=== PATIENT | female | born 1940 ===

== ENCOUNTER 2017-01-06 08:44 | Day surgery (SDC) | payer MEDICARE, OTHER, MEDICAID ==
[2017-01-03 10:32] VITALS: BMI 29.0
[2017-01-06] MEDS ORDERED: Bacitracin 500 Units/gm Oint Foilpak UD ONE ×2 (09:45→10:31)
[2017-01-06] MEDS ORDERED: Triamcinolone Acetonide 40 mg/mL Inj ONE (09:45)
[2017-01-06] MEDS ORDERED: Sodium Bicarbonate (8.4%) 50 Meq Syringe ONE (09:46)
[2017-01-06] MEDS ORDERED: Sodium Chloride 0.9% 10 ML IV ONE (09:46)
[2017-01-06] MEDS ORDERED: Iohexol 240 (50 ml) ONE (09:46)
[2017-01-06] MEDS ORDERED: Lidocaine 1% Inj (20ml) ONE (09:46)
[2017-01-06] MEDS ORDERED: Propofol 10 mg/ml Inj (20 ML) ONE (10:04)
[2017-01-06] MEDS ORDERED: Midazolam 2 MG/2 ML VIAL ONE (10:04)
[2017-01-06] MEDS ORDERED: Lactated Ringer's 1,000 ML IV SCH (10:15)
[2017-01-06] MEDS ORDERED: Dexamethasone 4 mg/1 ml ONE (10:23)
[2017-01-06 10:52] VITALS: TEMP 97.8
[2017-01-06 11:26] VITALS: O2SAT 99
--- NOTE | 2017-01-06 11:28 | RAD ---
PROCEDURE: Fluoro epidural spine injection HISTORY: LESI COMPARISON: TECHNIQUE: Fluoroscopy was provided in the operating room. 16.3 seconds of fluoro time were used. Two images were submitted FINDINGS: The study shows needle placement at the L3 level with contrast in the epidural space IMPRESSION: As above
[2017-01-06 12:06] VITALS: RESP 18
[2017-01-06 12:07] VITALS: BP 127/52; PULSE 60
--- NOTE | 2017-01-06 13:50 | OP ---
PROCEDURE DATE: 01/06/2017 PREOPERATIVE DIAGNOSES: 1. Lumbar radiculopathy. 2. Lumbar herniated disk with radiculopathy. POSTOPERATIVE DIAGNOSES: 1. Lumbar radiculopathy. 2. Lumbar herniated disk with radiculopathy. PROCEDURE: Lumbar interlaminar epidural steroid injection, L3-4 under fluoroscopic guidance. SURGEON: Liborio Peterson MD. TYPE OF ANESTHESIA: Local anesthesia and conscious sedation. ANESTHESIA ADMINISTERED BY: Raul Bejarano MD. ESTIMATED BLOOD LOSS: None. DESCRIPTION OF PROCEDURE: The patient signed an informed consent form in the preop area after all risks and complications were explained and all questions were answered. IV was started in the preop area and IV fluid administration continued throughout the procedure. Blood pressure, heart rate, pulse oximetry and cardiac monitoring were monitored throughout the procedure. Intravenous sedation appropriate to the procedure was administered by anesthesiologist and it was accurately reflected in the patient's chart. The patient was prepped and draped in the prone position in sterile fashion. The patient's spine was surveyed under fluoroscopic visualization and appropriate anatomical landmarks were identified. Lumbar interlaminar epidural steroid injection L3-4 under fluoroscopic guidance. The region overlying the left L4 lamina was identified under fluoroscopic visualization and was anesthetized using 1% lidocaine without epinephrine and mixed with sodium bicarbonate as a buffer using a 25 gauge 1.5 inch skin needle. The deeper tissue was anesthetized using 25 gauge 3.5 inch spinal needle for deeper tissues. A 17 gauge 3.5 inch Tuohy epidural needle was inserted through anesthetized tract of tissue down to the left L4 lamina and it was lamina and to the L3-4 epidural space. The epidural space localized by using loss of resistance technique and after negative aspiration for cerebrospinal fluid or blood, a 2 mL volume of Omnipaque 240 was injected and confirmed normal lumbar epidurogram. A spot film was ordered and obtained and confirmed correct needle placement. Following this, a 6 mL volume of fluid was injected containing 2 mL of lidocaine, 2 mL of sodium chloride and 2 mL of dexamethasone 4 mg/mL. Lumbar epidurogram and spot film - after Omnipaque was injected into the L3-4 epidural space, there was no evidence of subarachnoid flow and a normal epidurogram was obtained and AP spot film was ordered and obtained, confirmed correct needle tip placement and normal lumbar epidurogram. The patient tolerated the procedure very well, was in good condition at the conclusion of the procedure. COMPLICATIONS: None. DISPOSITION: The patient was discharged to recovery room in a good condition. DISCHARGE INSTRUCTIONS: 1. The patient was discharged to recovery room in a good condition. 2. Discharge instructions were provided and explained. 3. The patient to apply ice to the injection site as needed. 4. The patient to return to the office in 2 weeks for followup. Liborio Peterson MD
== END 2017-01-06 12:27 | disposition home or self-care (01) ==
LOC: SDS 08:44
PROVIDERS: ATTEND Specialist
DX: M51.16 Intervertebral disc disorders with radiculopathy, lumbar region (principal)
CPT/HCPCS: 62323; J1100; J2001; J2250; J2704; J3010; J3301; J7120 ×2; Q9966

== ENCOUNTER 2017-02-24 16:12 | Day surgery (SDC) | payer MEDICARE, MEDICAID ==
[2017-01-03 10:32] VITALS: BMI 29.0
[2017-02-24] MEDS ORDERED: Bacitracin 500 Units/gm Oint Foilpak UD ONE (16:48)
[2017-02-24] MEDS ORDERED: Triamcinolone Acetonide 40 mg/mL Inj ONE ×2 (16:48→17:22)
[2017-02-24] MEDS ORDERED: Bupivacaine 0.25% Inj(30mL) ONE (16:49)
[2017-02-24] MEDS ORDERED: Sodium Chloride 0.9% 10 ML IV ONE (16:49)
[2017-02-24] MEDS ORDERED: Lidocaine 1% Inj (20ml) ONE (16:49)
[2017-02-24] MEDS ORDERED: Iohexol 240 (50 ml) ONE (16:49)
[2017-02-24] MEDS ORDERED: Sodium Bicarbonate (8.4%) 50 Meq Syringe ONE (16:50)
[2017-02-24] MEDS ORDERED: Midazolam 2 MG/2 ML VIAL ONE (18:14)
[2017-02-24] MEDS ORDERED: Sodium Chloride 0.9% Inj (10mL) IV ONE (18:15)
[2017-02-24] MEDS ORDERED: Propofol 10 mg/ml Inj (20 ML) ONE (18:15)
[2017-02-24] MEDS ORDERED: HYDROmorphone 0.5 mg/0.5 ml ISec IVP PRN (18:36)
[2017-02-24 19:20] VITALS: RESP 18; TEMP 98.1; O2SAT 98
[2017-02-24 19:52] VITALS: BP 185/96; PULSE 84
--- NOTE | 2017-02-25 08:22 | OP ---
PROCEDURE DATE: 02/24/2017 TYPE OF SURGERY: 1. Right L3-4 transforaminal epidural steroid injection (right L3 selective nerve root block). 2. Right L4-5 transforaminal epidural steroid injection (right L4 selective nerve root block). 3. Fluoroscopic guidance. PREOPERATIVE DIAGNOSES: 1. Low back pain. 2. Lumbar radiculopathy. 3. Lumbar herniated disc with radiculopathy. POSTOPERATIVE DIAGNOSES: 1. Low back pain. 2. Lumbar radiculopathy. 3. Lumbar herniated disc with radiculopathy. TYPE OF ANESTHESIA: Local anesthesia, conscious sedation. SURGEON: Liborio Peterson MD ANESTHESIA ADMINISTERED BY: Jason Ryan MD ESTIMATED BLOOD LOSS: None. Method of Surgery: The patient signed an informed consent form in the pre-op area after all risks and complications were explained and all questions were answered. Blood pressure, heart rate, pulse oximetry, and cardiac monitoring were monitored throughout the procedure. EKG monitoring revealed normal sinus rhythm. The patient was prepped and draped in a sterile fashion in the prone position, The patient's spine was surveyed under fluoroscopic visualization and anatomical landmarks were identified. Right L3 Transforaminal Epidural Steroid Injection The region overlying the right L3 transverse process of the right L3 nerve root to be blocked was localized under fluoroscopic visualization. The soft tissues overlying this structure were copiously infiltrated with 1% Lidocaine without epinephrine. A 25G 1.5inch skin needle was used for superficial tissues and a 25G 3.5inch spinal needle was used for deeper tissues. Sodium bicarbonate was used for skin anesthesia to reduce the burning effect of the local anesthetic. A 25 gauge 3.5 inch spinal needle was inserted down into the posterior aspect of the base of the transverse process; and then, it was "walked off" the inferior aspect of this transverse process and advanced approximately 1cm further anteriorly. A 1cc volume of Omnipaque was injected to confirm the needle location (see the spot film interpretation below). Then, the injection was performed using 1cc of Dexamethasone(4mg/ml) with 2cc's of 0.25% marcaine without epinephrine and 1cc of preservative free normal saline. Perisheathogram and Spot Film: After Omnipaque was injected, a normal right L3 "perisheathogram" occurred without evidence of subarachnoid or vascular flow. A spot film was ordered and obtained and confirmed the correct needle tip placement and the normal right L3 perisheathogram. Right L4 Transforaminal Epidural Steroid Injection The region overlying the right L4 transverse process of the right L4 nerve root to be blocked was localized under fluoroscopic visualization. The soft tissues overlying this structure were copiously infiltrated with 1% Lidocaine without epinephrine. A 25G 1.5inch skin needle was used for superficial tissues. Sodium bicarbonate was used for skin anesthesia to reduce the burning effect of the local anesthetic. A 25gauge 3.5inch spinal needle was inserted down into the posterior aspect of the base of the transverse process; and then, it was " walked off" the inferior aspect of this transverse process and advanced approximately 1cm further anteriorly. A 1cc volume of Omnipaque was injected to confirm the needle location (see the spot film interpretation below). Then, the injection was performed using 1.0cc of Dexamethasone(4mg/ml) with 1cc's of 0.25 % marcaine without epinephrine and 1cc of preservative free normal saline. Perisheathogram and Spot Film: After Omnipaque was injected, a normal right L4 "perisheathogram" occurred without evidence of subarachnoid or vascular flow. A spot film was ordered and obtained and confirmed the correct needle tip placement and the normal right L4 perisheathogram The patient tolerated the procedure well and was in good condition at the conclusion of the procedures. Complications: None Disposition 1. The patient was discharged to the recovery room in good condition 2. Discharge instructions provided and explained. 3. Call with any questions or problems. Liborio Peterson MD MTDD
--- NOTE | 2017-02-25 13:29 | RAD ---
PROCEDURE: Fluoro epidural spine injection HISTORY: SELECTIVE NERVE ROOT BLOCK RIGHT L-3 - L-4 COMPARISON: TECHNIQUE: Fluoroscopy was provided in the operating room. 23.1 seconds of fluoro time were use. Three images were submitted FINDINGS: There is needle placement with contrast injection in the right neural foramen at L3, L4 IMPRESSION: As above
== END 2017-02-24 20:10 | disposition home or self-care (01) ==
LOC: SDS 16:12
PROVIDERS: ATTEND Specialist
DX: M51.16 Intervertebral disc disorders with radiculopathy, lumbar region (principal); I10 Essential (primary) hypertension; J43.9 Emphysema, unspecified; E11.9 Type 2 diabetes mellitus without complications; Z79.84 Long term (current) use of oral hypoglycemic drugs
CPT/HCPCS: 64483; 64484; J1170; J2250; J2704; J3301; J7120; Q9966

== ENCOUNTER 2018-07-21 06:02 | Day surgery (SDC) | payer MEDICARE, MEDICAID ==
[2018-07-17 17:07] VITALS: BMI 28.2
[2018-07-21 07:38] LABS: BASO # 0.01 K/mm3 (0.0-2.0); BASO % 0.3 % (0.0-3.0); EOS # 0.1 (0.0-0.7); EOS % 2.4 % (1.5-5.0); HEMOGLOBIN 9.9 g/dL (12.0-16.0); LYMPH # 1.1 (1.2-3.4); LYMPH % 29.7 % (22.0-35.0); MEAN CELL VOLUME 89.7 fl (80.0-105.0); MEAN CORPUSCULAR HEMOGLOBIN 28.4 pg (25.0-35.0); MEAN CORPUSCULAR HGB CONC 31.6 g/dl (31.0-37.0); MONO # 0.5 (0.1-0.6); MONO % 13.6 % (1.0-6.0); RBC 3.49 10^6/uL (3.5-6.1); RED CELL DISTRIBUTION WIDTH 14.6 % (11.5-14.5); WHITE BLOOD COUNT 3.8 10^3/uL (4.5-11.0)
[2018-07-21 07:47] LABS: CALCIUM 9.7 mg/dL (8.4-10.5); INR 1.15; PARTIAL THROMBOPLASTIN TIME 35.4 Seconds (26.9-38.3)
[2018-07-21] MEDS ORDERED: Bacitracin 500 Units/gm Oint Foilpak UD ONE (07:52)
[2018-07-21] MEDS ORDERED: Sodium Bicarbonate (8.4%) 50 mEq Vial ONE (07:53)
[2018-07-21] MEDS ORDERED: Sodium Chloride 0.9% 40 ML IV ONE (07:53)
[2018-07-21] MEDS ORDERED: Lidocaine 2% Inj (20ml) ONE (07:53)
[2018-07-21] MEDS ORDERED: Lidocaine 1% Inj (20ml) ONE ×2 (07:53→08:14)
[2018-07-21] MEDS ORDERED: Iohexol 240 (50 ml) ONE (07:53)
[2018-07-21] MEDS ORDERED: Midazolam 2 MG/2 ML VIAL ONE (08:13)
[2018-07-21] MEDS ORDERED: Propofol 10 mg/ml Inj (20 ML) ONE (08:14)
[2018-07-21] MEDS ORDERED: Lidocaine 1% w Epi 1:100,000 Inj ONE (08:59)
--- NOTE | 2018-07-21 09:13 | CARD ---
APPROVED REPORT Date of service: 07/21/2018 EKG Measurement Heart [id number] <Conclusion> Normal sinus rhythm Leftward axis Septal infarct, age undetermined Abnormal ECG
[2018-07-21] MEDS ORDERED: Triamcinolone Acetonide 40 mg/mL Inj ONE (10:01)
[2018-07-21] MEDS ORDERED: HYDROmorphone 0.5 mg/0.5 ml ISec IVP PRN (10:25)
[2018-07-21] MEDS ORDERED: Lactated Ringer's 1,000 ML IV SCH (10:30)
--- NOTE | 2018-07-21 10:57 | RAD ---
Date of service: 07/21/2018 PROCEDURE: Fluoroscopy up to 1 hr HISTORY: N COMPARISON: TECHNIQUE: 351.5 sec of fluoro time. Cumulative dose 3.44 mGy meter squared. Sixteen images submitted FINDINGS: The study shows placement of a needle above the level of the surgical hardware. Contrast is seen in the epidural space. IMPRESSION: As above
[2018-07-21 11:42] VITALS: PULSE 86; RESP 20
[2018-07-21] MEDS ORDERED: Oxycodone/Acetaminophen 5/325 mg Tab PO STA (12:18)
[2018-07-21] MEDS ORDERED: Oxycodone/Acetaminophen 5/325 mg Tab ONE (12:26)
[2018-07-21] MEDS ORDERED: Oxycodone/Acetaminophen 5/325 mg Tab PO ONE (12:30)
[2018-07-21 14:45] VITALS: BP 128/88; TEMP 98; O2SAT 96
--- NOTE | 2018-07-22 08:05 | OP ---
PROCEDURE DATE: 07/21/2018 TYPE OF SURGERY: MILD (minimally invasive lumbar decompression) of L3-4 under fluoroscopic guidance. PREOPERATIVE DIAGNOSIS: Lumbar spinal stenosis with neurogenic claudication. POSTOPERATIVE DIAGNOSIS: Lumbar spinal stenosis with neurogenic claudication. TYPE OF ANESTHESIA: Local anesthesia, conscious sedation. SURGEON: Liborio Peterson MD ANESTHESIA ADMINISTERED BY: Jason Ryan MD ESTIMATED BLOOD LOSS: Between approximately 1 to 5 mL. METHOD OF SURGERY: The patient signed an informed consent form after all risks and complications were explained and all questions were answered. An IV was started in the preop area, and an IV fluid administration continued throughout the procedure. Blood pressure, heart rate, pulse oximetry and cardiac monitoring were monitored throughout the procedure. Intravenous sedation appropriate to the procedure was administered by the anesthesiologist and was accurately reflected in the patient's chart. IV Ancef 2 g was administered preoperatively. The patient was prepped and draped in a sterile fashion in the prone position, and the spine was surveyed under fluoroscopic guidance and anatomical landmarks were identified. Percutaneous lumbar decompression (MILD procedure L3-L4). Ample amounts of local anesthesia using 1% lidocaine with epinephrine mixed with sodium bicarbonate as above were used to anesthetize the skin and the deep fascial plane after topographical landmarks were identified. Then, an epidurogram was performed under direct fluoroscopic visualization at L3 level by insertion of 20-gauge 3.5-inch Tuohy needle using loss of resistance technique. After negative aspiration for cerebrospinal fluid or blood, a minimal amount of Omnipaque contrast was injected, which showed decreased contrast flow past the L3-L4 level. An oblique contralateral view of the epidurogram was undertaken, which indicated lumbar spinal stenosis as shown by decreased contrast flow. A small incision was made with sharp scalpel blade, and a trocar with portal was inserted percutaneously under fluoroscopic guidance to contact the lamina of L4. A bone-sculpting rongeur was inserted to remove adequate amount of lamina (laminotomy) from the superior surface of L4 lamina and from the inferior aspect of the L3 lamina. The laminotomy created a passage for the tissue sculpting instruments used in debulking the ligamentum flavum. The ligamentum flavum was debulked in such way that the epidural contrast upon repeat of the epidurogram showed improved flow. Again, a similar procedure was performed on the other side bilaterally and was performed at L2-L3 level at the same fashion. There was no complication or difficulty noted during the procedure. Epidurogram was refreshed repeatedly throughout the procedure and demonstrated improvement in the original narrow canal. Upon completion of the procedure, the instruments were removed and appropriate hemostasis was achieved by direct compression and closure of the wound was performed by one suture of 2-0 nylon in each incision. The patient tolerated the procedure very well. Upon transferring the patient to the recovery room, the patient's vital signs remained stable and without any neurological deficit. A brief neurological exam was performed and showed adequate strength and no loss of sensation in lower extremities. COMPLICATIONS: None. DISPOSITION: 1. The patient was discharged to recovery room in a good condition. 2. Discharge instructions provided and explained. 3. Call for any questions or concern. 4. Apply ice to the incision site as needed. 5. The patient to return to the office in 10 to 14 days for followup and to remove the sutures. Liborio Peterson MD
== END 2018-07-21 14:36 | disposition home or self-care (01) ==
LOC: SDS 06:02
PROVIDERS: ATTEND Specialist
DX: M48.062 Spinal stenosis, lumbar region with neurogenic claudication (principal); I10 Essential (primary) hypertension; J45.909 Unspecified asthma, uncomplicated; E11.9 Type 2 diabetes mellitus without complications
CPT/HCPCS: 0275T; 36415; 80048; 85025; 85610; 85730; 93005